=== PATIENT | male | born 1965 | race Caucasian/White ===

== ENCOUNTER 2021-02-08 12:42 | Outpatient (REF) | payer MEDICARE, SELFPAY ==
--- NOTE | 2021-02-08 12:48 | EEG_ITS ---
The waking background activity consists of a well-defined moderate-voltage posterior 9 to 10 Hz alpha frequency, intermixed anteriorly with low-voltage fast frequencies. Photic stimulation is without activation. A few isolated slow waves were seen over both hemispheres without any clinical correlation. Drowsiness is characterized with diffuse theta slowing. During sleep, symmetrical frontal central sleep spindles and vertex sharp transients developed over both hemispheres. Arousals are unremarkable. The patient remains asymptomatic. No focal, lateralizing, or paroxysmal discharges seen. IMPRESSION: This 24-hour ambulatory EEG is within normal limits. MD SNOW Florez/ADRIANE / [id number]
== END 2021-02-08 12:43 | disposition home or self-care (01) ==
LOC: HO.NEURO 12:42
PROVIDERS: PCP Internal Medicine; Visit Provider Psychiatry & Neurology Neurology
DX: G40.209 Localization-related (focal) (partial) symptomatic epilepsy and epileptic syndromes with complex partial seizures, not intractable, without status epilepticus (principal)
CPT/HCPCS: 95708; 95957

== ENCOUNTER 2022-12-16 13:30 | Emergency (ER) | payer OTHER, SELFPAY ==
--- NOTE | ~2022-12-16 | US_ITS ---
EXAMINATION: US VENOUS ULTRASOUND WITH DOPPLER LOWER EXTREMITY, RIGHT CLINICAL INFORMATION: Pain. History of pulmonary embolus. COMPARISON: None available. TECHNIQUE: Ultrasound of the deep veins is performed from the hip to the calf with compression sonography and color and pulse Doppler assessment. Spectral analysis with color-flow imaging is performed. FINDINGS: There is normal venous compression and respiratory variation and augmented flow. The visualized common femoral vein, superficial femoral vein, profunda femoral vein, popliteal vein, and the trifurcation region shows no evidence of deep venous thrombosis. The visualized calf veins demonstrate normal flow. There is no significant popliteal fossa cyst. . If the patient's symptoms persist, followup ultrasound in 5 days 7 days might be of value to exclude proximal propagation from a non-visualized calf vein. US/US venous duplex LE RT IMPRESSION: No DVT demonstrated in the right lower extremity.
--- NOTE | ~2022-12-16 | XR_ITS ---
Indication: Injury, evaluate for fracture EXAMINATION: Right femur, hip and right pelvis. Single view of the pelvis does not demonstrate an acute finding. Degenerative changes are noted. 2 views of the right hip does not demonstrate evidence for fracture or dislocation. The femoral head contour is smooth. Degenerative changes are noted. 2 views of the right femur does not demonstrate evidence for an acute fracture. XR/XR hip RT w PEL1V IMPRESSION: Multiple studies. No acute bony finding.
--- NOTE | ~2022-12-16 | XR_ITS ---
Indication: Injury, evaluate for fracture EXAMINATION: Right femur, hip and right pelvis. Single view of the pelvis does not demonstrate an acute finding. Degenerative changes are noted. 2 views of the right hip does not demonstrate evidence for fracture or dislocation. The femoral head contour is smooth. Degenerative changes are noted. 2 views of the right femur does not demonstrate evidence for an acute fracture. XR/XR femur RT 2V IMPRESSION: Multiple studies. No acute bony finding.
[2022-12-16 13:42] VITALS: BP 139/83; PULSE 82; RESP 16; TEMP 36.2; O2SAT 97; BMI 27.4
--- NOTE | 2022-12-16 17:28 | ECG_ITS ---
Test Reason : NAUSEA PE HISTORY Blood Pressure : / mmHG Vent. Rate : 066 BPM Atrial Rate : 066 BPM P-R Int : 186 ms QRS Dur : 086 ms QT Int : 392 ms P-R-T Axes : 043 040 004 degrees QTc Int : 410 ms Normal sinus rhythm Normal ECG No previous ECGs available Referred By: Michael Demarco Electronically Signed By:BRUCE SANFORD
[2022-12-16] MEDS: Acetaminophen 325 MG TABLET 975 MG PO (17:54)
[2022-12-16] MEDS: oxyCODONE HCl Immed Release 5 MG TABLET 10 MG PO (17:54)
[2022-12-16] MEDS: Ondansetron ODT 4 MG TAB.RAPDIS TRANSLINGU (17:54)
[2022-12-16 18:11] LABS: MANUAL DIFF FLAG NO
[2022-12-16 18:27] LABS: Alanine Aminotransferase 26 U/L (0-40); Albumin Level 4.6 g/dL (3.5-5.0); Alkaline Phosphatase 112 U/L (39-117); Anion Gap 15 (12-20); Aspartate Amino Transferase 18 U/L (5-37); Bilirubin Direct 0.2 mg/dL (0.0-0.5); Bilirubin Total 0.6 mg/dL (0.0-1.0); Blood Urea Nitrogen 21 mg/dL (9-16); Calcium 10.3 mg/dL (8.4-10.2); Carbon Dioxide 25 mmol/L (22-29); Chloride 105 mmol/L (96-108); Creatinine Clr Calc Pharmacy 87.4; Estimated Glomerular Filt Rate > 60; Glucose Random 87 mg/dL (60-115); Lipase 15 U/L (8-78); Potassium 4.3 mmol/L (3.3-5.1); Sodium 141 mmol/L (135-145); Total Protein 7.9 g/dL (6.5-8.0)
[2022-12-16 18:30] LABS: Basophils Percent Auto 0.3 % (0-2); Eosinophils Absolute Auto 0.1 X10*3/uL (0.0-0.4); Eosinophils Percent Auto 0.5 % (0-4); Hematocrit 42.1 % (42.0-52.0); Hemoglobin 13.9 g/dl (14.0-18.0); Imm Gran Abs Auto 0.03 X10*3/uL (0.00-0.03); Imm Gran Pct Auto 0.3 % (0.0-0.4); Lymphocytes Absolute Auto 2.5 X10*3/uL (1.2-4.9); Lymphocytes Percent Auto 24.5 % (20-40); Mean Corpuscular Hemoglobin 32.3 pg (27.0-33.0); Mean Corpuscular Volume 97.7 fL (80.0-98.0); Mean Platelet Volume 9.7 fL (9.4-12.4); Monocytes Absolute Auto 1.1 X10*3/uL (0.1-1.2); Monocytes Percent Auto 10.7 % (2-11); Neutrophils Absolute Auto 6.4 x10*3/uL (2.0-8.3); Neutrophils Percent Auto 63.7 % (45-73); Platelet Count 436 X10*3/uL (160-400); Red Blood Count 4.31 X10*6/uL (4.60-5.80); Red Cell Distribution Width 13.8 % (11.0-16.0)
[2022-12-16 18:40] LABS: Troponin-I High Sensitivity < 2.7 ng/L (<3.5-35.0)
--- NOTE | 2022-12-16 19:02 | ED.EXTPRO ---
HPI - Extremity Problem General Chief complaint: Extremity Problem Stated complaint: Nausea r leg calf pain Time Seen by Provider: 12/16/22 14:28 History of Present Illness HPI Narrative: patient complains of right gluteal thigh and calf pain after trip and fall 10 days ago, no syncope or fainting He also complains of 3 days of intermittent nausea without vomiting, he has no abdominal pain he has no diarrhea he has no chest pain no shortness of breath no palpitations no fainting or feeling faint no dizziness no confusion no headache He denies any back pain and says all the pain is right thigh right hip posterior right leg right calf and it all began after his trip and fall where he thinks he may have twisted his leg He denies any back pain no neck pain no headache no change to bowel or bladder no dysuria no incontinence Related Data Previous Rx's Medication Instructions Recorded acetaminophen 500 mg tablet 1,000 mg PO TID PRN pain #30 tabs 12/16/22 ibuprofen 600 mg tablet 600 mg PO Q6H PRN pain #20 tabs 12/16/22 ondansetron 4 mg disintegrating 4 mg PO Q6-8H PRN nausea and 12/16/22 tablet vomiting #10 tabs oxycodone 5 mg tablet 5 mg PO Q6H PRN pain #20 tabs 12/16/22 walker #1 ea 12/16/22 Allergies Allergy/AdvReac Type Severity Reaction Status Date / Time No Known Allergies Allergy Verified 12/16/22 13:45 [facility] Past Medical History Source: nursing notes reviewed Social History Social History Advance Directives: No Advance Directives Information Provided: No Physical Exam Vital Signs: Vital Signs: Last Vital Signs Temp 97.2 F 12/16/22 13:42 Pulse 82 12/16/22 13:42 Resp 16 12/16/22 13:42 BP 139/83 12/16/22 13:42 Pulse Ox 97 12/16/22 13:42 O2 Del Method Room Air 12/16/22 13:42 BMI result Body Mass Index 27.4 general appearance is comfortable no distress wall laying down but it is painful for him to change positions in the right thigh and leg Head is normocephalic atraumatic Neck is supple nontender The chest is clear to auscultation bilateral Chest wall nontender Heart no murmur Abdomen soft nontender Extremities the right leg was normal in appearance, there was no redness or swelling but there was tenderness in the right gluteal area the right posterior thigh in the right calf, movement brought increased pain to that area, he was able to stand up and bear weight but changing position and putting weight on it increased his pain It was neurovascular intact distal with normal symmetric dorsalis pedis pulses easily palpable Other extremities normal Course Course Course Narrative: patient complains of right gluteal right upper leg and right calf pain for past 10 days after he fell in the bathroom twisting his leg and feeling sharp pain He has been walking around on it but it hurts and it is very hard to move around so he is mostly sitting in his recliner laying in bed but he is able to walk He saw his primary doctor who did a back x-ray and thought it might be some back strain He also complains of some episodes of nausea over the past 2 days which she associates with the continuous pain in his leg, he has had no vomiting He denies any chest pain no shortness of breath no fainting or feeling faint no dizziness no palpitation EKG was a normal sinus rhythm with no evidence of ST elevation or acute ischemic changes, rate was 66, QTC normal, OH interval normal, QRS duration normal Troponin was under 2.7, these tests were done because of the episodes of nausea, with no other chest pain or shortness of breath X-rays of hip pelvis and femur were negative for any acute fracture Ultrasound of the right leg was done with no evidence of DVT On exam there was a good pulse no evidence of ischemia no changes of color Patient is discharged home with analgesics and nausea medicine which he used with good response here in the emergency room He is advised to follow with his doctor if the episodes of nausea continue, as well as to send him for physical therapy for probable muscle injuries in his leg Medications Administered Discontinued Medications Generic Name Dose Route Start Last Admin Trade Name Freq PRN Reason Stop Dose Admin Acetaminophen 975 mg 12/16/22 17:31 12/16/22 17:54 Acetaminophen 325 Mg Tablet PO 12/16/22 17:32 975 mg ONCE ONE Administration Ondansetron HCl 4 mg 12/16/22 17:31 12/16/22 17:54 Ondansetron Odt 4 Mg Tab.Rapdis TRANSLINGU 12/16/22 17:32 4 mg ONCE ONE Administration Oxycodone HCl 10 mg 12/16/22 17:31 12/16/22 17:54 Oxycodone Hcl Immed Release 5 Mg Tablet PO 12/16/22 17:32 10 mg ONCE ONE Administration Medical Decision Making Lab Data MDM Lab Attestation statement: I reviewed the patient's lab results. 12/16/22 18:06 12/16/22 18:06 Labs: Lab Results 12/16/22 12/16/22 12/16/22 Range/Units 18:06 18:06 18:06 WBC 10.0 (4.8-10.8) X10*3/uL RBC 4.31 L (4.60-5.80) X10*6/uL Hgb 13.9 L (14.0-18.0) g/dl Hct 42.1 (42.0-52.0) % MCV 97.7 (80.0-98.0) fL MCH 32.3 (27.0-33.0) pg MCHC 33.0 (31.0-36.0) g/dl RDW 13.8 (11.0-16.0) % Plt Count 436 H (160-400) X10*3/uL MPV 9.7 (9.4-12.4) fL Immature Gran % (Auto) 0.3 (0.0-0.4) % Neut % (Auto) 63.7 (45-73) % Lymph % (Auto) 24.5 (20-40) % [place] % (Auto) 10.7 (2-11) % Eos % (Auto) 0.5 (0-4) % Baso % (Auto) 0.3 (0-2) % Lymph # (Auto) 2.5 (1.2-4.9) X10*3/uL [place] # (Auto) 1.1 (0.1-1.2) X10*3/uL Eos # (Auto) 0.1 (0.0-0.4) X10*3/uL Baso # (Auto) 0.0 (0.0-0.2) X10*3/uL Abs Immat Gran (auto) 0.03 (0.00-0.03) X10*3/uL Absolute Neuts (auto) 6.4 (2.0-8.3) x10*3/uL Absolute Nucleated RBC 0.000 (0.0-0.012) X10*3/uL Nucleated RBC % (auto) 0.0 (0.0-0.2) /100WBC Sodium 141 (135-145) mmol/L Potassium 4.3 (3.3-5.1) mmol/L Chloride 105 (96-108) mmol/L Carbon Dioxide 25 (22-29) mmol/L Anion Gap 15 (12-20) BUN 21 H (9-16) mg/dL Creatinine 0.86 (0.5-1.4) mg/dL Estim Creat Clear Calc 87.4 Estimated GFR > 60 Random Glucose 87 (60-115) mg/dL Calcium 10.3 H (8.4-10.2) mg/dL Total Bilirubin 0.6 (0.0-1.0) mg/dL Direct Bilirubin 0.2 (0.0-0.5) mg/dL AST 18 (5-37) U/L ALT 26 (0-40) U/L Alkaline Phosphatase 112 (39-117) U/L Troponin I High Sens < 2.7 (<3.5-35.0) ng/L Total Protein 7.9 (6.5-8.0) g/dL Albumin 4.6 (3.5-5.0) g/dL Lipase 15 (8-78) U/L Discharge Plan Discharge Clinical Impression: Muscle tear Patient Disposition: Home, Self-Care Additional Instructions: because of your episodes of nausea we got an EKG and did some blood work, EKG was normal and troponin heart attack test was also normal We recommend you follow closely with your doctor for further evaluation of these episodes of nausea Return immediately to the ER should you get chest pain fainting, any worse condition or concern The pain in the back of your leg likely from torn muscles in her fall 10 days ago Ultrasound of the leg was negative there was no clot seen X-rays of right femur hip and pelvis were negative for any acute fracture On exam I did not see any signs of ischemia in the leg, or any sign of infection I am not certain but is likely that the pain in the back of leg is from muscle tears and strains Best plan is follow with orthopedist or primary doctor for referral for physical therapy Return any time for any worse condition or concerns Prescriptions: New (DME) walker Misc See Rx Instructions .Route Qty: 1 0RF Rx Instructions: As directed oxycodone 5 mg tablet 5 mg PO Q6H PRN (Reason: pain) Qty: 20 0RF Rx Instructions: Partial Fill upon patient request. ondansetron 4 mg tablet,disintegrating 4 mg PO Q6-8H PRN (Reason: nausea and vomiting) Qty: 10 0RF ibuprofen 600 mg tablet 600 mg PO Q6H PRN (Reason: pain) Qty: 20 0RF acetaminophen 500 mg tablet 1,000 mg PO TID PRN (Reason: pain) Qty: 30 0RF Referrals: Cornel Rosa MD [Physician] - ( hamstring and calf muscle tear) Interventions: ED Discharge Assessment Last Done: 12/16/22 19:25 Discharge Date/Time: 12/16/22 19:26
== END 2022-12-16 19:26 | disposition home or self-care (01) ==
PROVIDERS: Physician Assistant Medical; Emergency Provider Internal Medicine; PCP Internal Medicine
DX: S76.911A Strain of unspecified muscles, fascia and tendons at thigh level, right thigh, initial encounter (principal); W19.XXXA Unspecified fall, initial encounter; M79.604 Pain in right leg; R11.0 Nausea; Y93.9 Activity, unspecified; Y92.031 Bathroom in apartment as the place of occurrence of the external cause; Y99.9 Unspecified external cause status
CPT/HCPCS: 36415; 73502; 73552; 80048; 80076; 83690; 84484; 85025; 93005; 93971; 99284

== ENCOUNTER 2023-01-10 16:37 | Emergency (ER) | payer MEDICARE, SELFPAY ==
[2023-01-10 17:04] VITALS: BP 131/83; PULSE 88; RESP 18; TEMP 36.4; O2SAT 98; BMI 27.5
--- NOTE | 2023-01-10 17:05 | ED.LOWEXIN ---
HPI - Extremity Injury (Lower) General Chief Complaint: Back Pain/Injury Stated Complaint: 12/17, pulled hamstring, sciatica, bone spur. pain Time Seen by Provider: 01/10/23 17:10 Source: patient and old records reviewed Mode of arrival: ambulatory Limitations: no limitations History of Present Illness HPI Narrative: 57 yo male with history of recent RLE injury s/p fall 6 weeks ago who presents to the ER for evaluation of right sided low back pain and ongoing RLE pain since the injury. He has seen his PCP several times, had US and x-rays. He has also seen [facility] with plan for MRI and surgical intervention. Patient reports no relief with tramadol and baclofen trials. No new weakness, numbness, tingling, urinary or bowel incontinence. Pain is significantly limiting his mobility and he is now walking with a walker. complaint: other (back and RLE pain s/p fall 6 weeks ago) Onset (ago): week(s) Severity: severe Severity scale (1-10): 10 Relieving factors: immobilization and rest Exacerbating factors: weight bearing, movement and palpation Context: fall Associated symptoms: able to partially bear weight Related Data Previous Rx's Medication Instructions Recorded acetaminophen 500 mg tablet 1,000 mg PO TID PRN pain #30 tabs 12/16/22 ibuprofen 600 mg tablet 600 mg PO Q6H PRN pain #20 tabs 12/16/22 ondansetron 4 mg disintegrating 4 mg PO Q6-8H PRN nausea and 12/16/22 tablet vomiting #10 tabs oxycodone 5 mg tablet 5 mg PO Q6H PRN pain #20 tabs 12/16/22 walker #1 ea 12/16/22 cyclobenzaprine 10 mg tablet 10 mg PO TID PRN muscle spasm #14 01/10/23 tabs oxycodone 5 mg tablet 5 mg PO Q6H PRN severe pain (scale 01/10/23 score 7-10) #15 tabs prednisone 50 mg tablet 50 mg PO DAILY #7 tabs 01/10/23 Allergies Allergy/AdvReac Type Severity Reaction Status Date / Time No Known Allergies Allergy Verified 01/10/23 17:04 Review of Systems Review of Systems: Yes all other systems are reviewed and are negative PMFSH Social History Social History Advance Directives: No Advance Directives Information Provided: Yes Physical Exam Vital Signs: Vital Signs: Last Vital Signs Temp 97.5 F 01/10/23 17:04 Pulse 88 01/10/23 17:04 Resp 18 01/10/23 17:04 BP 131/83 01/10/23 17:04 Pulse Ox 98 01/10/23 17:04 O2 Del Method Room Air 01/10/23 17:04 BMI result Body Mass Index 27.5 Appearance: Alert. Oriented X3. No acute distress. HEENT: normal inspection CVS: Normal heart rate and rhythm. Pulses normal. Respiratory: No respiratory distress. Skin: Skin warm and dry. Normal skin color. Normal skin turgor. No rashes. Extremities: normal inspection x4. Neuro: Oriented X 3. Grossly normal, nonfocal. Slow but steady gait Course Course Course Narrative: RME - 57 yo male presenting with 6 weeks of right lower extremity pain and lower back pain/sciatica after a fall at the beginning of November. Has had x-rays and ultrasounds at [facility] and with his PCP. Seen at [facility] and was told he had disc disease and 2 pinched nerves. MRI is planned with hopes for surgical intervention. Plan: treat pain, refer to [email or web address] Medical Decision Making Medical Decision Making MDM Narrative: 57 yo male presenting with RLE pain and back pain after a fall 6 weeks ago. Prior notes reviewed. No red flag symptoms of low back pain. Will treat with trial of prednisone, muscle relaxer and give short course of narcotic pain medication for severe pain only. patient counseled on pain mangement and limitation of narcotics from the ER. He will f/u with [facility] for d/c home Differential Diagnosis Differential Diagnoses: The differential diagnosis associated with the presentation includes Inflammatory disorders, malignancy, trauma, osteoporosis, nerve root compression, radiculopathy, plexopathy, degenerative disc disease, disc herniation, spinal stenosis, sacroiliac joint dysfunction, facet joint injury, and less likely infection?like abscess or diskitis External Record Review External record reviewed: Outpatient record and Prior outpatient labs Tests considered The following testing was considered but not selected: consider CT scan of the lumbar spine but he is getting an outpatient MRI - no evidence of spinal cord compression based on history Prescription Management I considered prescription management with: Pain Medication Critical Care Time Critical Care Time Critical Care Time: No Discharge Plan Discharge Clinical Impression: Sciatica, Leg pain, right Patient Disposition: Home, Self-Care Instructions: Sciatica (ED), Leg Pain (ED) Additional Instructions: Use ice several times per day for 20 minutes at a time for the next 48 hours and then change to heat. Take medications as prescribed to help with pain and discomfort. Follow up with your Primary Care Doctor this week as well as [facility]. If your pain worsens, if you develop new numbness, tingling, weakness, loss of function or incontinence call 911 or come back to the ER right away for evaluation. Prescriptions: New prednisone 50 mg tablet 50 mg PO DAILY Qty: 7 0RF cyclobenzaprine 10 mg tablet 10 mg PO TID PRN (Reason: muscle spasm) Qty: 14 0RF oxycodone 5 mg tablet 5 mg PO Q6H PRN (Reason: severe pain (scale score 7-10)) Qty: 15 0RF Rx Instructions: Partial Fill upon patient request. No Action (DME) walker Misc See Rx Instructions .Route Qty: 1 0RF Rx Instructions: As directed oxycodone 5 mg tablet 5 mg PO Q6H PRN (Reason: pain) Qty: 20 0RF Rx Instructions: Partial Fill upon patient request. ondansetron 4 mg tablet,disintegrating 4 mg PO Q6-8H PRN (Reason: nausea and vomiting) Qty: 10 0RF ibuprofen 600 mg tablet 600 mg PO Q6H PRN (Reason: pain) Qty: 20 0RF acetaminophen 500 mg tablet 1,000 mg PO TID PRN (Reason: pain) Qty: 30 0RF Interventions: ED Discharge Assessment Last Done: 01/10/23 17:20 Discharge Date/Time: 01/10/23 17:27
== END 2023-01-10 17:27 | disposition home or self-care (01) ==
LOC: HO.ED 17:20
PROVIDERS: Emergency Provider Internal Medicine; PCP Internal Medicine
DX: M54.41 Lumbago with sciatica, right side (principal)
CPT/HCPCS: 99282; 99283

== ENCOUNTER 2023-02-16 11:10 | Outpatient (AMB) | payer MEDICARE, SELFPAY ==
--- NOTE | 2023-02-16 11:24 | A.SPINEOV_ITS ---
Intake Intake Visit Reasons: low back pain Intake Note: Mr. Clemente is here today c/o low back pain. MRI done @ [facility]/brought disc. Telephone Engineer Required: No Allergies No Known Allergies Allergy (Verified 01/10/23 17:04) Assessment & Plan Assessment & Plan (1) Lumbar radiculopathy: Code(s): M54.16 - Radiculopathy, lumbar region Plan Dear Issa, Thank you for referring Mr Clemente to our office today. He is a 57-year-old gentleman who has no previous back surgery history who experienced acute onset of what sounds like right L5 radiculopathy on 12/01/2022. He went through a series of workups, was seen in your office, treated conservatively, tincture of time, medicines etc. and the symptoms seem to have resolved mostly. At the time it happened it was a 12/10 pain but now it is basically just a little discomfort going into the back of his hamstring. He had subsequent imaging done which showed nothing acute on the right side, just degeneration on the left L5 foramen. He was sent to us for evaluation. He deferred injections, PT etc. because those things have never really worked for him much in the past for other issues. PMH: Seizures, chronic back issues, left knee surgery, spleen surgery, appendectomy, neck surgery, finger surgery, left elbow repair, carpal tunnel right hand Social hx: He does not smoke Medications: Keppra, Lamictal, Depakote, metoprolol, baby aspirin, gabapentin, iron Allergies: None Physical exam: He has some mild weakness of his right tibialis but otherwise exam is intact, gait is normal Imaging review: Lumbar MRI done at [facility] shows multilevel [id number] degenerative disc disease. The left L5 foramen may have some narrowing but I see absolutely nothing in the central canal or on the right that would explain right leg pain. Impression: 57-year-old gentleman presents with what sounds like a right L5 radiculopathy which is resolving, his imaging is otherwise unremarkable with no compression on the right side. I suspect given the story that he herniated a disc but the disc has reabsorbed and the pressure is now off the nerve and that is why we are not seeing anything on the MRI. Clinically he is doing better and now only has some mild discomfort down his right leg. He has no indication for surgery and he should just continue to give this time and I suspect it will just go away completely. Thank you for allowing us to care for your patient. The total time spent with this visit with this patient was 45 minutes reviewing history, physical exam, lumbar imaging review, and implementation of treatment plan or further diagnostic testing Fady Elizalde MD,PhD [facility] Coding Level of Care Code New Pt Level 4 (11792) Diagnoses Lumbar radiculopathy M54.16
== END 2023-02-16 11:48 | disposition home or self-care (01) ==
PROVIDERS: PCP Internal Medicine; Referring Provider Student in an Organized Health Care Education/Training Program; Visit Provider Physician Assistant
DX: M54.16 Radiculopathy, lumbar region (principal)
CPT/HCPCS: 99204

== ENCOUNTER → 2023-02-16 11:10 | Outpatient (BNVA) | payer MEDICARE, SELFPAY | PROVIDERS: PCP Internal Medicine; Referring Provider Student in an Organized Health Care Education/Training Program; Visit Provider Physician Assistant | DX: M54.16 Radiculopathy, lumbar region (principal) | CPT/HCPCS: 99202 ==

== ENCOUNTER 2025-01-06 11:01 | Outpatient (AMB) | payer MEDICARE, SELFPAY ==
--- NOTE | 2025-01-06 11:11 | MHC.OFFVIS ---
Vital Signs 01/06/25 11:12 Height 5 ft 4 in Intake Visit Reasons: 6M SZ Allergies No Known Allergies Allergy (Verified 01/06/25 11:15) Medication List - Last Reconciled 01/06/25 by Lynn Steele CNP acetaminophen 1,000 mg (2 x 500 mg) PO TID PRN aspirin 81 mg PO DAILY atorvastatin (Lipitor) 80 mg PO DAILY divalproex 500 mg PO BEDTIME ferrous sulfate 325 mg PO DAILY ibuprofen 600 mg PO Q6H PRN lamotrigine 200 mg PO BID levetiracetam 2,000 mg PO BID metoprolol succinate ER 50 mg PO DAILY walker As directed zolpidem 5 mg PO BEDTIME PRN HPI Comments Details: He was doing okay. No seizures or spells. He was taking zolpidem 5mg, no medication side effects. He did not feel like medication was helping as much anymore. He was sleeping about 4.5-5 hours/night. He was having trouble falling asleep. He was sometimes waking up during the night. He was apparently on Seroquel many years ago for sleep which helped. Had PE in 09/2020 and was on Eliquis. 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 Started having partial complex seizures which he describes as acting weird and sometimes childlike lasting a few seconds to several minutes. He was treated by Dr. Michael Costello on a 3-drug regimen including Keppra, Lamictal and Depakote. He reports no seizures since around 2009. Rarely he mixes words and gets tongue tied. Low back pain from degenerative disc disease. Had 4 epidural injections at [facility] without relief. He has had a cervical discectomy in 2004 and has no significant neck problems. He tried epidural injections for the lower back to the pain clinic but he did not help. He does not want any change in his meds. [facility] Medical History (Updated 01/06/25 @ 11:14 by Lynn Steele CNP) Lumbar disc herniation Insomnia Chronic low back pain Complex partial seizures Review of Systems Const Denies chills, Denies daytime sleepiness, Reports difficulty sleeping, Denies fatigue, Denies fever(s), Denies frequent falls, Denies headache(s), Denies increased appetite, Denies poor appetite, Denies snoring, Denies weakness, Denies weight gain and Denies weight loss Eyes Denies loss of vision ENT Denies vertigo, Denies dizziness, Denies headache(s) and Denies neck pain Card Denies chest pain at rest, Denies chest pain with activity, Denies syncope, Denies leg edema, Denies palpitations, Denies dyspnea and Denies dyspnea on exertion Resp Denies cough, Denies dyspnea, Denies dyspnea on exertion and Denies snoring GI Denies abdominal pain, Denies constipation, Denies heartburn, Denies diarrhea and Denies nausea Denies urinary frequency, Denies urinary incontinence and Denies urinary urgency Musc Denies abnormal gait, Reports back pain, Denies myalgias, Denies arthralgias, Denies neck pain, Denies numbness and Denies tingling Neuro Denies abnormal gait, Denies vertigo, Denies dizziness, Denies syncope, Denies frequent falls, Denies headache(s), Denies lack of coordination, Denies loss of vision, Denies memory loss, Denies numbness, Denies Other visual disturbances, Denies restless legs, Denies seizure-like activity, Denies tingling, Denies paresthesias, Denies tremor(s) and Denies weakness Psych Denies anxiety, Denies depression, Denies auditory hallucinations, Denies memory loss and Denies visual hallucinations Endo Denies fatigue and Denies palpitations Physical Exam Const Other: General Appearance:? normal, in no acute distress. Heart:? S1, S2 normal, no murmurs. Lungs:? clear anteriorly and posteriorly. Musculoskeletal:? normal. Extremities:? no edema. Psych:? alert, oriented, cognitive function intact, cooperative with exam. Neuro Other: Abnormal Neurological Findings:?none.? Mental Status: alert and oriented X 3. Normal attention, orientation, memory, and affect. Cranial Nerves: Pupils are equal, round, and reactive to light. External ocular muscles are intact. Visual ramos are full, no ptosis. Face is symmetrical, no facial weakness or droop. Facial sensations are normal. Tongue protrudes in midline. Palate elevates symmetrically. Shoulder shrugging is normal Motor Examination: Normal muscle tone, bulk and strength. No atrophy or fasciculations. No drift of the extended upper extremities. DTR 2+. Plantars are flexor. Straight Leg Raisin degrees. Sensory Exam: Normal light touch, temperature, pinprick, vibration, and joint-position sensations. Rhomberg sign is absent. Coordination: No ataxia. No titubation. Edmrwi-mp-llzv, egna-njap-plub test, and rapid alternating movements were normal. Gait Exam: Within normal limits. Cerebellar Signs: Czgntu-tu-dlto and kniw-qe-opwd is normal. No dysdiadochokinesia. Extrapyramidal System: No tremor, rigidity with normal facial expressions. No bradykinesia. No bradyphrenia. Normal arm swing and posture. No propulsion or retropulsion. Speech: Normal. No dysphasia or dysarthria. Assessment & Plan Assessment & Plan (1) Complex partial seizures: Code(s): G40.209 - Localization-related (focal) (partial) symptomatic epilepsy and epileptic syndromes with complex partial seizures, not intractable, without status epilepticus Category: Medical Plan: Continue Depakote 500mg 1 tablet at bedtime. Continue lamotrigine 200mg 1 tablet twice a day. Continue levetiracetam 1000mg 2 tablets twice a day. (2) Insomnia: Code(s): G47.00 - Insomnia, unspecified Category: Medical Qualifiers: Insomnia type: unspecified Qualified Code(s): G47.00 - Insomnia, unspecified Plan: Increase zolpidem 10mg 1 tablet at bedtime as needed for sleep Plan Meds tried: Trazodone, hydroxyzine Medications: New zolpidem 10 mg PO BEDTIME PRN 30 tabs 2RF sleep 30 days Coding Level of Care Code Est Pt Level 4 (05530) Diagnoses Complex partial seizures G40.209 Insomnia, unspecified type G47.00 Insomnia type: unspecified
--- OUTSIDE RECORDS SUMMARY | 2025-01-06 12:25 | XMS_ITS ---
Author Name [facility] Organization Unknown Encounters Encounter Type Encounter Reason Primary Diagnosis Location Date Ambulatory [facility] 04/22/2024 Care Team Organization Name Specialty Phone Email Start Date End Da te [facility] 2024
--- OUTSIDE RECORDS SUMMARY | 2025-01-06 12:25 | XMS_ITS | Clinical Summary ---
Author Organization [facility] Address [address] [place] [address] Care Team Providers Care Green Prize Packer Name Role Phone Boo Valero MD Primary Care Provider [phone] Allergies Active Allergy Reactions Criticality Noted Date Comments Morphine Itching,Other (See Comments) Low 022 Nausea Medications Medication Sig Dispensed Refills Start Date End Date Status atorvastatin (LIPITOR) tablet 80 mg Take 80 mg by mouth daily. 0 06/10/2021 Active ferrous sulfate 325 (65 FE) MG tablet Take 1 tablet by mouth daily. 0 07/05/2021 Active lamoTRIgine (LaMICtal) 200 MG tablet Take 200 mg by mouth. 0 08/03/2012 Active levETIRAcetam (KEPPRA) 1000 MG tablet Take 2,000 mg by mouth. 0 10/19/2020 Active Metoprolol Succinate 50 MG CS24 Take by mouth. 0 Active pantoprazole (PROTONIX) 40 MG tablet Take 40 mg by mouth daily. 0 07/05/2021 Active traZODone (DESYREL) 50 MG tablet TAKE 1 TABLET AT BEDTIME 0 06/02/2021 Active apixaban (ELIQUIS) 2.5 MG TABS tablet Take 1 tablet (2.5 mg total) by mouth every 12 (twelve) hours. 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 Polysomnogram in 01/31. Family History Medical History Relation Name Comments Lung cancer Father Ovarian cancer Mother Thrombosis Mother In setting of m alignancy Relation Name Status Comments Father (Age 65) Mother (Age 80) Social History Tobacco Use Types Packs/Day Years Used Date Smoking Tobacco: Never Smokeless Tobacco: Never Alcohol Use Standard Drinks/Week Comments Yes 0 (1 standard drink = 0.6 oz pur e alcohol) Occasionally Sex and Gender Information Value Date Recorded Sex Assigned at Not on file Gender Identity Not on file Sexual Orientation Not on file Job Start Date Occupation Industry Not on file Not on file Not on file Last Filed Vital Signs Vital Sign Reading Time Taken Comments Blood Pressure 113/74 01/25/2022 11:50 AM EDT Pulse 69 01/25/2022 11:50 AM EDT Temperature 36.4 C (97.5 F) 01/25/2022 11:50 AM EDT Respiratory Rate - - Oxygen Saturation 98% 01/25/2022 11:50 AM EDT Inhaled Oxygen Concentration - - Weight 73.5 kg (162 lb) 01/25/2022 11:50 AM EDT Height 162.6 cm (5' 4 ) 01/25/2022 11:50 AM EDT Body Mass Index 27.81 01/25/2022 11:50 AM EDT Plan of Treatment Health Maintenance Due Date Last Done Comments Hepatitis B Vaccines (1 of 3 - 3-dose series) 1966 Hepatitis C Screening 1966 COVID-19 Vaccine (#1) 06/16/1967 Depression Screening 1978 Preventative Health Evaluation 1984 Colon Cancer Screening (Colonoscopy) 12/16/2011 Pneumococcal Vaccine (3 of 3 - PPSV23 or PCV20) 08/17/2016 06/22/2016, 04/12/2010 Shingrix-Zoster Vaccine (1 o f 2) 2016 DTap / Tdap / Td (2 - Tdap) 05/17/2021 05/17/2011 Influenza Vaccine (#1) 2025 2, 05/17/2011 RSV Ped < 20 months Aged Out No longe r eligible based on patient's age to complete this topic Care Teams Green Prize Packer Relationship Specialty Start Date End Date Boo Valero MD [address] [place] [address] PCP - General Internal Medicine 07/11/21
== END 2025-01-06 11:35 | disposition home or self-care (01) ==
LOC: HO.HSM 11:02
PROVIDERS: PCP Internal Medicine; Referring Provider Internal Medicine; Visit Provider Registered Nurse
DX: G40.209 Localization-related (focal) (partial) symptomatic epilepsy and epileptic syndromes with complex partial seizures, not intractable, without status epilepticus (principal); G47.00 Insomnia, unspecified
CPT/HCPCS: 99214

== ENCOUNTER → 2025-01-06 11:01 | Outpatient (BNVA) | payer MEDICARE, SELFPAY | PROVIDERS: PCP Internal Medicine; Referring Provider Internal Medicine; Visit Provider Registered Nurse | DX: G40.209 Localization-related (focal) (partial) symptomatic epilepsy and epileptic syndromes with complex partial seizures, not intractable, without status epilepticus (principal); G47.00 Insomnia, unspecified | CPT/HCPCS: 99212 ==

== ENCOUNTER 2025-04-02 18:47 | Emergency (ER) | payer MEDICARE, MEDICAID, SELFPAY ==
--- NOTE | ~2025-04-02 | CT_ITS ---
CLINICAL HISTORY: ARVIZU for weeks CT head without contrast Comparison: None provided Findings: No intra-axial mass, midline shift, hydrocephalus, or acute hemorrhage. No significant atrophy-like change or white matter disease. The visualized paranasal sinuses and mastoid air cells are normal. The orbits are within normal limits. No skull fracture. IMPRESSION: 1. No acute intracranial findings. This document has been electronically signed by: Malu Montaño MD on 04/03/2025 00:06:53
[2025-04-02 18:51] VITALS: BP 122/80; PULSE 66; O2SAT 99
[2025-04-02 18:56] VITALS: BP 138/78; PULSE 61; RESP 16; TEMP 36.3; O2SAT 100
[2025-04-02 18:59] VITALS: BP 138/78; PULSE 62; RESP 16; TEMP 36.6; O2SAT 100; BMI 26.6
--- NOTE | 2025-04-02 19:32 | ECG_ITS ---
Test Reason : HEADACHE Blood Pressure : */* mmHG Vent. Rate : 60 BPM Atrial Rate : 60 BPM P-R Int : 194 ms QRS Dur : 90 ms QT Int : 414 ms P-R-T Axes : 44 32 13 degrees QTcB Int : 414 ms Normal sinus rhythm Normal ECG When compared with ECG of 16-Dec-2022 17:52, No significant change was found Referred By: Generic ED Physician Electronically Signed By: GABINO ABURTO MD
[2025-04-02 20:02] VITALS: BP 129/71; PULSE 59; RESP 16; TEMP 36.8; O2SAT 99
[2025-04-02 20:13] LABS: MANUAL DIFF FLAG NO
[2025-04-02 20:14] LABS: Hematocrit 41.5 % (42.0-52.0); Hemoglobin 14.0 g/dl (14.0-18.0); Imm Gran Abs Auto 0.02 X10*3/uL (0.00-0.03); Imm Gran Pct Auto 0.2 % (0.0-0.4); Lymphocytes Absolute Auto 1.8 X10*3/uL (1.2-4.9); Mean Corpuscular HGB Conc 33.7 g/dl (31.0-36.0); Mean Corpuscular Hemoglobin 32.3 pg (27.0-33.0); Mean Corpuscular Volume 95.8 fL (80.0-98.0); NRBC Abs Auto 0.000 X10*3/uL (0.0-0.012); NRBC Pct Auto 0.0 /100WBC (0.0-0.2); Platelet Count 338 X10*3/uL (160-400); Red Blood Count 4.33 X10*6/uL (4.60-5.80); White Blood Count 8.9 X10*3/uL (4.8-10.8)
[2025-04-02 20:20] LABS: INTERNATIONAL NORM RATIO 1.0 (0.9-1.1); Prothrombin Time 11.5 SEC (10.9-12.4)
[2025-04-02 20:31] LABS: Alanine Aminotransferase 37 U/L (0-40); Albumin Level 4.6 g/dL (3.5-5.0); Alkaline Phosphatase 107 U/L (39-117); Anion Gap 15 (12-20); Aspartate Amino Transferase 31 U/L (5-37); Blood Urea Nitrogen 15 mg/dL (9-16); Calcium 10.2 mg/dL (8.4-10.2); Carbon Dioxide 24 mmol/L (22-29); Chloride 106 mmol/L (96-108); Creatinine Clr Calc Pharmacy 59.6; Estimated Glomerular Filt Rate > 60; Magnesium 2.3 mg/dL (1.6-2.6); Potassium 4.2 mmol/L (3.3-5.1); Sodium 141 mmol/L (135-145); Total Protein 7.5 g/dL (6.5-8.0)
[2025-04-02 20:42] LABS: Troponin-I High Sensitivity < 2.7 ng/L (<3.5-35.0)
--- NOTE | 2025-04-02 21:33 | PC.NURSE ---
Pt's daughter Courtney called requesting an update, update given. Courtney requesting to be called w/ any devlopements [phone], Courtney informed pt can and will update her as needed. Will keep her number on file in case of any emergencies.
[2025-04-02 22:21] VITALS: BP 136/74; PULSE 64; RESP 16; TEMP 36.6; O2SAT 99
[2025-04-02 23:35] VITALS: BP 122/70; PULSE 66; RESP 16; O2SAT 99
--- NOTE | 2025-04-03 00:24 | ED.GENADULT ---
HPI - General Adult General Chief complaint: Headache Stated complaint: headache, nausea Time Seen by Provider: 04/02/25 20:09 Source: patient Limitations: no limitations History of Present Illness ED Provider: Aissatou Fernandez PA-C HPI narrative: 59-year-old male with a history of seizure disorder on antiepileptic medication, hyperlipidemia, hypertension, known coronary artery disease, prior STEMI, insomnia and chronic back pain presents with headache for weeks. Patient states his head has felt ?weird? since the [place]. Patient was having frontal symptoms, today he woke with a left occipital headache that began as an ache, and gradually progressed in severity throughout the day. Associated nausea and vomiting. Denies head trauma, active vomiting, neck pain, fever, recent cough or cold symptoms, the patient does take aspirin. No other blood thinners. No history of migraine type headache. Denies photophobia, phonophobia or dizziness. No preceding heavy lifting injury. Related Data Home Medications ?Medication ?Instructions ?Recorded ?Confirmed aspirin 81 mg tablet 81 mg PO DAILY 01/02/25 01/06/25 atorvastatin 80 mg tablet (Lipitor) 80 mg PO DAILY 01/02/25 01/06/25 ferrous sulfate 325 mg (65 mg 325 mg PO DAILY 01/02/25 01/06/25 iron) tablet lamotrigine 200 mg tablet 200 mg PO BID 01/02/25 01/06/25 levetiracetam 1,000 mg tablet 2,000 mg PO BID 01/02/25 01/06/25 metoprolol succinate 50 mg 50 mg PO DAILY 01/02/25 01/06/25 tablet,extended release 24 hr Previous Rx's ?Medication ?Instructions ?Recorded acetaminophen 500 mg tablet 1,000 mg (2 x 500 mg) PO TID PRN 12/16/22 pain #30 tabs ibuprofen 600 mg tablet 600 mg PO Q6H PRN pain #20 tabs 12/16/22 walker #1 ea 12/16/22 zolpidem 10 mg tablet 10 mg PO BEDTIME PRN sleep 30 days 01/06/25 #30 tabs divalproex 500 mg tablet,delayed 500 mg PO BEDTIME 90 days #90 tabs 03/17/25 release prochlorperazine maleate 10 mg 10 mg PO Q8H PRN nausea and 04/03/25 tablet (Compazine) vomiting #10 tabs Allergies Allergy/AdvReac Type Severity Reaction Status Date / Time No Known Allergies Allergy Verified 04/02/25 19:01 Review of Systems Review of Systems: Yes all other systems are reviewed and are negative Constitutional: Constitutional: Denies fatigue, Denies fever(s) and Reports headache(s) Eyes: Eyes: Denies photophobia ENT: Denies dizziness, Reports headache(s) and Denies neck pain Cardiovascular: Cardiovascular: Denies chest pain and Denies dyspnea Respiratory: Respiratory: Denies cough and Denies dyspnea Gastrointestinal: Gastrointestinal: Denies abdominal pain, Reports nausea and Denies vomiting Musculoskeletal: Musculoskeletal: Denies back pain and Denies neck pain Neurologic: Denies dizziness and Reports headache(s) Endocrine: Endocrine: Denies fatigue PMFSH Past Medical History Attestation statement: The following information was validated with the patient. Medical History (Updated 04/03/25 @ 01:03 by RAMESH Baker) Lumbar disc herniation Insomnia Chronic low back pain Complex partial seizures Social History Social History Smoked in Last 30 Days: No Use of substances other than those prescribed or required for medical reasons: No Advance Directives: No Advance Directives Information Provided: Yes Physical Exam ED Vital Signs: Vital Signs - 24 hr 04/02/25 18:56 04/02/25 18:59 04/02/25 20:02 Temperature 97.3 F 97.8 F 98.2 F Pulse Rate 61 62 59 Respiratory Rate 16 16 16 Blood Pressure 138/78 138/78 129/71 Pulse Oximetry 100 100 99 Oxygen Delivery Method Room Air Room Air Room Air 04/02/25 22:21 04/02/25 23:35 Temperature 97.8 F Pulse Rate 64 66 Respiratory Rate 16 16 Blood Pressure 136/74 122/70 Pulse Oximetry 99 99 Oxygen Delivery Method Room Air Room Air BMI result Body Mass Index 26.6 Const Other: Alert well-appearing Orientation/consciousness: patient oriented x3 Eyes Direct Ophthalmoscopy: No photophobia Neck Neck: Yes full ROM and Yes no meningeal signs Resp Effort & Inspection: normal respiratory effort Cardio Other: Normal peripheral perfusion Skin Other: Warm dry no rash Neuro General: patient oriented x3, gait normal, no meningeal signs, no focal motor deficits and CN's II-XI intact bilaterally Psych Other: Cooperative Course Reevaluation(s) Reevaluation #1: Resolved with a migraine cocktail Medications Administered Discontinued Medications Generic Name Dose Route Start Last Admin Trade Name Remigio PRN Reason Stop Dose Admin Dexamethasone Sodium Phosphate 10 mg 04/02/25 20:24 04/02/25 20:55 Dexamethasone Sod Phosphate 10 Mg/Ml Vial IVPUSH 04/02/25 20:25 10 mg ONCE ONE Administration Diphenhydramine HCl 25 mg 04/02/25 20:24 04/02/25 20:55 Diphenhydramine Hcl 50 Mg/Ml Vial IVPUSH 04/02/25 20:25 25 mg ONCE ONE Administration Sodium Chloride 500 mls @ 500 mls/hr 04/02/25 20:24 04/02/25 21:33 Ns IV 04/02/25 21:23 Infused .Q1H ONE Infusion Acetaminophen 1,000 mg in 100 mls @ 400 mls/hr 04/02/25 20:24 04/02/25 21:32 Ofirmev IV 04/02/25 20:38 Infused ONCE ONE Infusion Prochlorperazine Edisylate 10 mg 04/02/25 20:24 04/02/25 20:55 Prochlorperazine Edisylate 10 Mg/2 Ml Vial IVPUSH 04/02/25 20:25 10 mg ONCE ONE Administration Medical Decision Making Medical Decision Making MDM Narrative: 59-year-old male with a history of seizure disorder on antiepileptic medication, hyperlipidemia, hypertension, known coronary artery disease, prior STEMI, insomnia and chronic back pain presents with headache for weeks. Patient states his head has felt ?weird? since the [place] Patient was having frontal symptoms, today he woke with a left occipital headache that began as an ache, and gradually progressed in severity throughout the day. Associated nausea and vomiting. Denies head trauma, active vomiting, neck pain, fever, recent cough or cold symptoms, the patient does take aspirin. No other blood thinners. No history of migraine type headache. Denies photophobia, phonophobia or dizziness. No preceding heavy lifting injury. Problem: Hypertension , vascular disease, hyperlipidemia History: Per patient I have considered the following differential diagnoses: Migraine, tension headache, meningitis, VAD, intracranial hemorrhage/subarachnoid Plan: Patient has had vague symptoms for several weeks, today his symptoms progressed, his headache is not truly migrainous in nature, he has never had persisting headaches in the past, obtaining a CT scan. Clinically, he has no nuchal rigidity, he has no neurologic deficits he is not actively vomiting to suggest intracranial hemorrhage/subarachnoid. Thought about VAD, however there was no preceding heavy lifting mechanism. Thought about meningitis, but no neck pain, and no meningeal signs on exam. Treating with Decadron Tylenol fluid Compazine Benadryl. No indication for labs I have independently reviewed the following tests: CT brain: Findings: No intra-axial mass, midline shift, hydrocephalus, or acute hemorrhage. No significant atrophy-like change or white matter disease. The visualized paranasal sinuses and mastoid air cells are normal. The orbits are within normal limits. No skull fracture. IMPRESSION: 1. No acute intracranial findings. Differential Diagnosis Differential Diagnoses: The differential diagnosis associated with the presentation includes See medical decision-making Admission/Observation Consideration of admission/observation: Escalation of care including admission/observation considered Not applicable Lab Data 04/02/25 20:09 04/02/25 20:09 Labs: Lab Results 04/02/25 Range/Units 20:09 WBC 8.9 (4.8-10.8) X10*3/uL RBC 4.33 L (4.60-5.80) X10*6/uL Hgb 14.0 (14.0-18.0) g/dl Hct 41.5 L (42.0-52.0) % MCV 95.8 (80.0-98.0) fL MCH 32.3 (27.0-33.0) pg MCHC 33.7 (31.0-36.0) g/dl RDW 13.4 (11.0-16.0) % Plt Count 338 (160-400) X10*3/uL MPV 9.5 (9.4-12.4) fL Immature Gran % (Auto) 0.2 (0.0-0.4) % Neut % (Auto) 67.7 (45-73) % Lymph % (Auto) 19.9 L (20-40) % Dickens % (Auto) 10.9 (2-11) % Eos % (Auto) 0.8 (0-4) % Baso % (Auto) 0.5 (0-2) % Lymph # (Auto) 1.8 (1.2-4.9) X10*3/uL Dickens # (Auto) 1.0 (0.1-1.2) X10*3/uL Eos # (Auto) 0.1 (0.0-0.4) X10*3/uL Baso # (Auto) 0.0 (0.0-0.2) X10*3/uL Abs Immat Gran (auto) 0.02 (0.00-0.03) X10*3/uL Absolute Neuts (auto) 6.0 (2.0-8.3) x10*3/uL Absolute Nucleated RBC 0.000 (0.0-0.012) X10*3/uL Nucleated RBC % (auto) 0.0 (0.0-0.2) /100WBC PT 11.5 (10.9-12.4) SEC INR 1.0 (0.9-1.1) Sodium 141 (135-145) mmol/L Potassium 4.2 (3.3-5.1) mmol/L Chloride 106 (96-108) mmol/L Carbon Dioxide 24 (22-29) mmol/L Anion Gap 15 (12-20) BUN 15 (9-16) mg/dL Creatinine 1.13 (0.5-1.4) mg/dL Estim Creat Clear Calc 59.6 Estimated GFR > 60 Random Glucose 93 (60-115) mg/dL Calcium 10.2 (8.4-10.2) mg/dL Magnesium 2.3 (1.6-2.6) mg/dL Total Bilirubin 0.4 (0.0-1.0) mg/dL AST 31 (5-37) U/L ALT 37 (0-40) U/L Alkaline Phosphatase 107 (39-117) U/L Troponin I High Sens < 2.7 (<3.5-35.0) ng/L Total Protein 7.5 (6.5-8.0) g/dL Albumin 4.6 (3.5-5.0) g/dL Radiology Impression Discussion of test interpretation with radiology: I have reviewed the radiologist's reading. Discharge Plan Discharge Clinical Impression: Headache Patient Disposition: Home, Self-Care Instructions: Acute Headache (ED) Additional Instructions: All of your screening labs were normal, the CT scan of your brain was normal as well. You were treated for a headache, it resolved with a migraine cocktail. I am sending you with the same medication, if you develop a similar headache in the future, take all the medication at the same time. It is the synergistic effect that helps alleviate the headache. Follow up with primary care as needed. [id number] Excedrin migraine 1000 mg Compazine 10 mg Dgzm-bzz-idppbyq Benadryl 25 mg Prescriptions: New prochlorperazine maleate [Compazine] 10 mg tablet 10 mg PO Q8H PRN (Reason: nausea and vomiting) Qty: 10 0RF No Action divalproex 500 mg tablet,delayed release (DR/EC) 500 mg PO BEDTIME 90 Days Qty: 90 1RF (DME) juancarlos Byrd See Rx Instructions .Route Qty: 1 0RF Rx Instructions: As directed ibuprofen 600 mg tablet 600 mg PO Q6H PRN (Reason: pain) Qty: 20 0RF acetaminophen 500 mg tablet 1,000 mg PO TID PRN (Reason: pain) Qty: 30 0RF atorvastatin [Lipitor] 80 mg tablet 80 mg PO DAILY lamotrigine 200 mg tablet 200 mg PO BID metoprolol succinate 50 mg tablet extended release 24 hr 50 mg PO DAILY ferrous sulfate 325 mg (65 mg iron) tablet 325 mg PO DAILY aspirin 81 mg tablet 81 mg PO DAILY levetiracetam 1,000 mg tablet 2,000 mg PO BID zolpidem 10 mg tablet 10 mg PO BEDTIME PRN (Reason: sleep) 30 Days Qty: 30 2RF Print Language: Guatemalan
[2025-04-03 00:57] VITALS: BP 110/71; PULSE 71; RESP 16; TEMP 36.7; O2SAT 97
[2025-04-03 01:19] VITALS: BP 110/71; PULSE 71; RESP 16; TEMP 36.7; O2SAT 97
[2025-04-03 01:20] LABS: Appearance Urine Clear; Glucose Urine UA Negative (Negative); PH 6.5 (5.0-9.0); Specific Gravity - Urine 1.015 (1.005-1.025)
== END 2025-04-03 01:28 | disposition home or self-care (01) ==
PROVIDERS: Emergency Provider Emergency Medicine
DX: R51.9 Headache, unspecified (principal); G40.909 Epilepsy, unspecified, not intractable, without status epilepticus; I10 Essential (primary) hypertension; I25.10 Atherosclerotic heart disease of native coronary artery without angina pectoris; I25.2 Old myocardial infarction; Z79.82 Long term (current) use of aspirin; Z79.899 Other long term (current) drug therapy
CPT/HCPCS: 36415; 70450; 80053; 81003; 83735; 84484; 85025; 85610; 93005; 96361; 96374; 96375; 99284; 99285; J0131; J0737; J1100; J1200

== ENCOUNTER → 2025-04-02 19:32 | Outpatient (BNV) | payer MEDICARE, MEDICAID, SELFPAY | PROVIDERS: Emergency Provider Emergency Medicine; Visit Provider Internal Medicine Cardiovascular Disease | DX: R51.9 Headache, unspecified (principal) | CPT/HCPCS: 93010 ==

== ENCOUNTER → 2025-04-02 20:24 | Outpatient (BNV) | payer MEDICARE, MEDICAID, SELFPAY | PROVIDERS: Emergency Provider Emergency Medicine; Visit Provider Radiology Diagnostic Radiology | DX: R51.9 Headache, unspecified (principal) | CPT/HCPCS: 70450 ==

== ENCOUNTER 2025-04-09 12:09 | Outpatient (REF) | payer MEDICARE, SELFPAY | END 2025-04-09 12:10 | disposition home or self-care (01) | LOC: HO.LAB 12:09 | PROVIDERS: Visit Provider Registered Nurse | DX: G40.209 Localization-related (focal) (partial) symptomatic epilepsy and epileptic syndromes with complex partial seizures, not intractable, without status epilepticus (principal); G47.00 Insomnia, unspecified; G43.909 Migraine, unspecified, not intractable, without status migrainosus; Z79.899 Other long term (current) drug therapy | CPT/HCPCS: 36415; 85652; 86140; 99212 ==

== ENCOUNTER 2025-04-09 12:09 | Outpatient (AMB) | payer MEDICARE, SELFPAY ==
--- NOTE | 2025-04-09 12:28 | A.OFFVIS_ITS ---
Intake Visit Reasons: 3M SZ Allergies No Known Allergies Allergy (Verified 04/09/25 12:50) Medication List - Last Reconciled 04/09/25 by Lynn Steele CNP acetaminophen 1,000 mg (2 x 500 mg) PO TID PRN aspirin 81 mg PO DAILY atorvastatin (Lipitor) 80 mg PO DAILY divalproex 500 mg PO BEDTIME 90 days ferrous sulfate 325 mg PO DAILY ibuprofen 600 mg PO Q6H PRN lamotrigine 200 mg PO BID 90 days levetiracetam 2,000 mg PO BID metoprolol succinate ER 50 mg PO DAILY prochlorperazine maleate (Compazine) 10 mg PO Q8H PRN walker As directed zolpidem 10 mg PO BEDTIME PRN 30 days HPI Comments Details: No seizures or spells. Sleep was a bit better with increased dose of zolpidem. Since mid-02/2025, he has been having vague type pain around his head. It associated with some nausea. No photophobia or sonophobia. He was initially treated for sinus infection without any improvement. He was seen at [facility] last week where he was treated for migraine and had CT scan done. No jaw pain or claudication. No fevers or chills. No specific triggers identified. Had PE in 09/2020 and was on Eliquis. 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 Started having partial complex seizures which he describes as acting weird and sometimes childlike lasting a few seconds to several minutes. He was treated by Dr. Michael Costello on a 3-drug regimen including Keppra, Lamictal and Depakote. He reports no seizures since around 2009. Rarely he mixes words and gets tongue tied. Low back pain from degenerative disc disease. Had 4 epidural injections at [facility] without relief. He has had a cervical discectomy in 2004 and has no significant neck problems. He tried epidural injections for the lower back to the pain clinic but he did not help. He does not want any change in his meds. [facility] Medical History (Updated 04/09/25 @ 12:56 by Lynn Steele CNP) Lumbar disc herniation Insomnia Chronic low back pain Complex partial seizures Review of Systems Const Denies chills, Denies daytime sleepiness, Reports difficulty sleeping, Denies fatigue, Denies fever(s), Denies frequent falls, Reports headache(s), Denies increased appetite, Denies poor appetite, Denies snoring, Denies weakness, Denies weight gain and Denies weight loss Eyes Denies loss of vision ENT Denies vertigo, Denies dizziness, Reports headache(s) and Denies neck pain Card Denies chest pain at rest, Denies chest pain with activity, Denies syncope, Denies leg edema, Denies palpitations, Denies dyspnea and Denies dyspnea on exertion Resp Denies cough, Denies dyspnea, Denies dyspnea on exertion and Denies snoring GI Denies abdominal pain, Denies constipation, Denies heartburn, Denies diarrhea and Denies nausea Denies urinary frequency, Denies urinary incontinence and Denies urinary urgency Musc Denies abnormal gait, Reports back pain, Denies myalgias, Denies arthralgias, Denies neck pain, Denies numbness and Denies tingling Neuro Denies abnormal gait, Denies vertigo, Denies dizziness, Denies syncope, Denies frequent falls, Reports headache(s), Denies lack of coordination, Denies loss of vision, Denies memory loss, Denies numbness, Denies Other visual disturbances, Denies restless legs, Denies seizure-like activity, Denies tingling, Denies paresthesias, Denies tremor(s) and Denies weakness Psych Denies anxiety, Denies depression, Denies auditory hallucinations, Denies memory loss and Denies visual hallucinations Endo Denies fatigue and Denies palpitations Physical Exam Const Other: General Appearance:? normal, in no acute distress. Heart:? S1, S2 normal, no murmurs. Lungs:? clear anteriorly and posteriorly. Musculoskeletal:? normal. Extremities:? no edema. Psych:? alert, oriented, cognitive function intact, cooperative with exam. Neuro Other: Abnormal Neurological Findings:?none.? Mental Status: alert and oriented X 3. Normal attention, orientation, memory, and affect. Cranial Nerves: Pupils are equal, round, and reactive to light. External ocular muscles are intact. Visual ramos are full, no ptosis. Face is symmetrical, no facial weakness or droop. Facial sensations are normal. Tongue protrudes in midline. Palate elevates symmetrically. Shoulder shrugging is normal Motor Examination: Normal muscle tone, bulk and strength. No atrophy or fasciculations. No drift of the extended upper extremities. DTR 2+. Plantars are flexor. Sensory Exam: Normal light touch, temperature, pinprick, vibration, and joint- position sensations. Rhomberg sign is absent. Coordination: No ataxia. No titubation. Gait Exam: Within normal limits. Cerebellar Signs: Jrysrh-wr-clvp is okay. Extrapyramidal System: No tremor, rigidity with normal facial expressions. No bradykinesia. No bradyphrenia. Normal arm swing and posture. No propulsion or retropulsion. Speech: Normal. Results Reviewed Results Reviewed: [address] [address] [address] Scan Report Signed Patient: Shai Clemente MR#: [id number] : 1965 Acct:[id number] Age/Sex: 59 / M ADM Date: 04/02/25 Loc: HO.ED Attending Dr: Ordering Physician: Aissatou Fernandez Date of Service: 04/02/25 Procedure(s): CT head/brain wo IV con Accession Number(s): [id number] cc: Aissatou Fernandez; Group,[facility] Report Number: [id number]: Total DLP = 589.00 mGy-cm Reason for Exam: ARVIZU for weeks CLINICAL HISTORY: ARVIZU for weeks CT head without contrast Comparison: None provided Findings: No intra-axial mass, midline shift, hydrocephalus, or acute hemorrhage. No significant atrophy-like change or white matter disease. The visualized paranasal sinuses and mastoid air cells are normal. The orbits are within normal limits. No skull fracture. IMPRESSION: 1. No acute intracranial findings. This document has been electronically signed by: Malu Montaño MD on 04/03/2025 00:06:53 Laboratory Tests 04/02/25 20:09 WBC 8.9 RBC 4.33 L Hgb 14.0 Hct 41.5 L MCV 95.8 MCH 32.3 MCHC 33.7 RDW 13.4 Plt Count 338 MPV 9.5 Sodium 141 Potassium 4.2 Chloride 106 Carbon Dioxide 24 Anion Gap 15 BUN 15 Creatinine 1.13 Estimated GFR > 60 Random Glucose 93 Calcium 10.2 Magnesium 2.3 Total Bilirubin 0.4 AST 31 ALT 37 Alkaline Phosphatase 107 Total Protein 7.5 Albumin 4.6 Assessment & Plan Assessment & Plan (1) Complex partial seizures: Code(s): G40.209 - Localization-related (focal) (partial) symptomatic epilepsy and epileptic syndromes with complex partial seizures, not intractable, without status epilepticus Category: Medical Plan: Continue Depakote 500mg 1 tablet at bedtime. Continue lamotrigine 200mg 1 tablet twice a day. Continue levetiracetam 1000mg 2 tablets twice a day. (2) Insomnia: Code(s): G47.00 - Insomnia, unspecified Category: Medical Qualifiers: Insomnia type: unspecified Qualified Code(s): G47.00 - Insomnia, unspecified Plan: Continue zolpidem 10mg 1 tablet at bedtime as needed for sleep (3) Migraine: Code(s): G43.909 - Migraine, unspecified, not intractable, without status migrainosus Category: Medical Qualifiers: Migraine type: unspecified Status migrainosus presence: without status migrainosus Intractability: not intractable Qualified Code(s): G43.909 - Migraine, unspecified, not intractable, without status migrainosus Plan: CT scan and labs reviewed. Reviewed labs ordered. Start amitriptyline 10mg 1 tablet at bedtime. Start ondansetron 4mg 1 tablet as needed for nausea/vomiting. Plan Meds tried: Trazodone, hydroxyzine Orders: Orders Erythrocyte Sedimentation Rate Today G43.909 - Migraine, unspecified, not intractable, without status migrainosus C Reactive Protein Today G43.909 - Migraine, unspecified, not intractable, without status migrainosus Medications: New amitriptyline 10 mg PO BEDTIME 90 tabs 1RF 90 days ondansetron 4 mg PO DAILY PRN 10 tabs 5RF nausea and vomiting 30 days Discontinued prochlorperazine maleate (Compazine) Discontinued Reason: Doctor's Order 10 mg PO Q8H PRN 10 tabs 0RF nausea and vomiting Coding Level of Care Code Est Pt Level 4 (78451) Diagnoses Complex partial seizures G40.209 Insomnia, unspecified type G47.00 Insomnia type: unspecified Migraine without status migrainosus, not intractable, unspecified migraine type G43.909 Migraine type: unspecified Status migrainosus presence: without status migrainosus Intractability: not intractable
--- OUTSIDE RECORDS SUMMARY | 2025-04-09 15:20 | XMS_ITS | Clinical Summary ---
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
--- OUTSIDE RECORDS SUMMARY | 2025-04-09 15:20 | XMS_ITS | Patient Health Record ---
Author Organization [facility] [place] Address 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 Name Role Phone Naz Vazquez Unavailable [phone] Reason For Referral Reason left knee pain with multiple cycts right shoulder pain when extending arm Diagnosis 1 Acute pain of right shoulder (M25.511) Diagnosis 2 Pain in left knee (M 25.562) Referral Organization [facility] Referring Provider First Name Naz Referring Provider Last Name [place] Referred Organization [facility] Referred Address [address],[place], [place],[address], Referred Provider Specialty Orthopedic S urgery Referral Priority Routine Medications Medication SIG (Take, Route, Frequency, Duration) Notes Start Date End Date Status Iron 325 (65 Fe) MG Tablet 1 tablet Oral ly Three times a Week Active LaMICtal 200 MG Tablet 1 tablet Orally t wice a day Active Aspirin 81 81 MG Tablet Delayed Release 1 tablet Orally Once a day Active Atorvastatin Calcium 80 MG Tablet 1 tablet Orally Once a day Active Lipitor 80 MG Tablet 1 tablet Orally Onc e a day Active Metoprolol Succinate ER 50 MG Tablet Extended Release 24 Hour 1 tablet Orally Once a day Active Keppra 1000 MG Tablet 2 talbets Orally t wice a day Active Depakote ER 500 MG Tablet Extended Release 24 Hour 1 tablet Orally Once a day Active Social History Section Notes: Smoking- denies Alcohol- on sats Caffeine- 2 cups of coffee Vital Signs Heart Rate 75 /min 03/23/2025 Temperature 98.3 degrees Fahrenheit 03/23/2025 Respiratory Rate 16 /min 03/23/2025 Height-cm 162.56 cm 03/23/2025 Oximetry 95 % 03/23/2025 Blood pressure diastolic 78 mm Hg 03/23/2025 Weight-kg 70.04 kg 03/23/2025 Height 64 in 03/23/2025 Blood pressure systolic 122 mm Hg 03/23/2025 Weight 154.4 lbs 03/23/2025 BMI 26.5 kg/m2 03/23/2025 Encounters Encounter Location Date Provider Diagnosis [facility] [place] [address] [place] [address] 02/11/2025 Naz Vazquez Acute pain of left knee M25.562 ; Acute pain of right shoulder M25.511 and Seizure disorder G40.909 [facility] [place] [address] [place] [address] 03/23/2025 Naz Vazquez Sinus pain J34.89 Assessments Encounter Date Diagnosis (ICD Code) Assessment Notes Treatment Notes Treatment Clinical Notes Section Notes 02/11/2025 Acute pain of right shoulder (ICD-10 - M25.511) patient report hard calcium type cysts on both knees left > right. and right elbow for about a month. no trauma or injury preceeded development. Labs to include keppora and depakote level ordered 02/11/2025 Acute pain of left knee (ICD-10 - M25.562) patient report hard calcium type cysts on both knees left > right. and right elbow for about a month. no trauma or injury preceeded development. Labs to include keppora and depakote level ordered 03/23/2025 Sinus pain (ICD-10 - J34.89) Patient reports a 2 week time of nausea and headache. Denies vomiting, diarrhea or constipation. Does report cheek and upper jaw pain. Sees Neuro on April 09 will look for keppra level reports no seizures for years 02/11/2025 Seizure disorder (ICD-10 - G40.909) patient report hard calcium type cysts on both knees left > right. and right elbow for about a month. no trauma or injury preceeded development. Labs to include keppora and depakote level ordered Plan Of Treatment Next Appt Details Provider Name:Nza oswald, 08/14/2025 09:00:00 AM, [address], [address], [place], [address], [phone] Insurance Providers Payer Name Payer Address Payer Phone Subscriber Number Group Number Insured Name Patient Relationship to Insured Coverage Start Date Coverage End Date [employer] [address] [address] [place] [address] [phone] [id number] Shai Clemente Self - patient is the insured Medical (General) History Medical History History ICD Code hypertension hyperlipidemia seizures heart attack at age 47 Pulmonary cumbnziv-5-3 years ago Surgical History Surgery Date(Month/Year) removal of spleen appendectomy orthoscopic left knee-2x Cervical plate left elbow 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
== END 2025-04-09 13:01 | disposition home or self-care (01) ==
LOC: HO.HSM 12:09
PROVIDERS: PCP Internal Medicine; Visit Provider Registered Nurse
DX: G40.209 Localization-related (focal) (partial) symptomatic epilepsy and epileptic syndromes with complex partial seizures, not intractable, without status epilepticus (principal); G47.00 Insomnia, unspecified; G43.909 Migraine, unspecified, not intractable, without status migrainosus
CPT/HCPCS: 99214